=== PATIENT | male | born 1960 ===

== ENCOUNTER 2019-11-03 06:36 | Day surgery (SDC) | payer BC, OTHER ==
[~2019-11-03 06:36] MED LIST: Lactated Ringers 1,000 ML IV SCH
[2019-11-03] MEDS ORDERED: Lidocaine 2% 5 ML SDV ONE (06:59)
[2019-11-03] MEDS ORDERED: Propofol 200 MG/20 ML SDV ONE (07:00)
[2019-11-03] MEDS ORDERED: fentaNYL 100 MCG/2 ML SDV ONE (07:00)
[2019-11-03] MEDS ORDERED: Midazolam 1 MG/ML 2 ML SDV ONE (07:00)
--- NOTE | 2019-11-03 07:17 | PCM.PREANE ---
Preanesthetic Assessment - Anesthesia/Transfusion/Family Hx Anesthesia History: Prior Anesthesia Without Reaction Family History of Anesthesia Reaction: No Transfusion History: No Prior Transfusion(s) - Review of Systems General: No Symptoms Pulmonary: No Symptoms Cardiovascular: No Symptoms Gastrointestinal: No Symptoms Neurological: No Symptoms Other: Reports: None - Physical Assessment NPO Status Date: 11/02/19 NPO Status Time: 22:00 Vital Signs: Last Vital Signs Temp 96.4 F L 11/03/19 06:45 Pulse 82 11/03/19 06:45 Resp 15 11/03/19 06:45 BP 115/79 11/03/19 06:45 Pulse Ox 96 11/03/19 06:45 Height: 5 ft 10 in Weight: 90.718 kg ASA Class: 2 Mental Status: Alert & Oriented x3 Airway Class: Mallampati = 2 Dentition: Reports: Normal Dentition ROM/Head Extension: Full Lungs: Clear to Auscultation, Normal Respiratory Effort Cardiovascular: Regular Rate, Regular Rhythm - Allergies Allergies/Adverse Reactions: Allergies Allergy/AdvReac Type Severity Reaction Status Date / Time No Known Allergies Allergy Verified 10/30/19 15:38 - Acknowledgements Anesthesia Type Planned: General Anesthesia (tiva) Pt an Appropriate Candidate for the Planned Anesthesia: Yes Alternatives and Risks of Anesthesia Discussed w Pt/Guardian: Yes Pt/Guardian Understands and Agrees with Anesthesia Plan: Yes Additional Comments: PMH: smoker PreAnesthesia Questionnaire HEENT History: Reports: Cataract, Other (See Below) Other HEENT History: has upper and lower permanent partial Gastrointestinal History: Reports: Chronic Constipation, Chronic Diarrhea, Colon Polyp, PUD, Other (See Below) Other Gastrointestinal History: occasional heartburn Musculoskeletal History: Reports: Fracture Other Musculoskeletal History: hx of fx hand, toes and hip socket Neurological History: Reports: Concussion, Head Trauma Oncologic (Cancer) History: Reports: Other (See Below) Other Oncologic History: unknown type of skin cancer removed from right forehead - Past Surgical History Head Surgeries/Procedures: Reports: None HEENT Surgical History: Reports: Cataract Surgery GI Surgical History: Reports: Colonoscopy, EGD Musculoskeletal Surgical History: Reports: Knee Replacement Dermatological Surgical History: Reports: Skin Biopsy - SUBSTANCE USE Smoking Status *Q: Current Every Day Smoker Tobacco Use Within Last Twelve Months: Cigarettes Recreational Drug Use History: No - HOME MEDS Home Medications: Home Meds Aspirin [Aspirin EC] 81 mg PO DAILY 10/30/19 [History] - CURRENT (IN HOUSE) MEDS Current Meds: Current Medications Lactated Ringer's (Ringers, Lactated) 1,000 mls @ 125 mls/hr IV ASDIRECTED RUDI Discontinued Medications Fentanyl (Sublimaze) Confirm Administered Dose 100 mcg .ROUTE .STK-MED ONE Stop: 11/03/19 07:01 Lidocaine (Xylocaine-Mpf 2%) Confirm Administered Dose 5 ml .ROUTE .STK-MED ONE Stop: 11/03/19 07:00 Midazolam HCl (Versed 1 Mg/Ml) Confirm Administered Dose 2 mg .ROUTE .STK-MED ONE Stop: 11/03/19 07:01 Propofol (Diprivan 20 Ml) Confirm Administered Dose 400 mg .ROUTE .STK-MED ONE Stop: 11/03/19 07:01
[2019-11-03] MEDS ORDERED: Glycopyrrolate 0.2 MG/ML SDV ONE ×2 (08:04→08:09)
--- NOTE | 2019-11-03 08:44 | PCM.OPNOTE ---
- General Post-Op/Procedure Note Date of Surgery/Procedure: 11/03/19 Operative Procedure(s): egd w bx. colonoscopy w bx Findings: see [id number] Pre Op Diagnosis: hx duod ulcer/colon polyp Post-Op Diagnosis: Same Anesthesia Technique: Moderate Sedation Primary Surgeon: Manny Nicole Pathology: sent Complications: None Condition: Good
[2019-11-03 09:18] VITALS: BP 115/85; PULSE 80
--- NOTE | 2019-11-03 10:49 | PCM48HPAN ---
Post Anesthesia Note - EVALUATION WITHIN 48HRS OF ANESTHETIC Vital Signs in Normal Range: Yes Patient Participated in Evaluation: Yes Respiratory Function Stable: Yes Airway Patent: Yes Cardiovascular Function Stable: Yes Hydration Status Stable: Yes Pain Control Satisfactory: Yes Nausea and Vomiting Control Satisfactory: Yes Mental Status Recovered: Yes Vital Signs: Last Vital Signs Temp 96.4 F L 11/03/19 08:49 Pulse 80 11/03/19 08:49 Resp 14 11/03/19 08:49 BP 115/85 11/03/19 08:49 Pulse Ox 97 11/03/19 08:49
--- NOTE | 2019-11-03 10:49 | PCM.POSTAN ---
POST ANESTHESIA ASSESSMENT - MENTAL STATUS Mental Status: Alert, Oriented - VITAL SIGNS Vital Signs: Last Vital Signs Temp 96.4 F L 11/03/19 08:49 Pulse 80 11/03/19 08:49 Resp 14 11/03/19 08:49 BP 115/85 11/03/19 08:49 Pulse Ox 97 11/03/19 08:49 - RESPIRATORY Respiratory Status: Respiratory Rate WNL, Airway Patent, O2 Saturation Stable - CARDIOVASCULAR CV Status: Pulse Rate WNL, Blood Pressure Stable - GASTROINTESTINAL GI Status: No Symptoms - POST OP HYDRATION Hydration Status: Adequate & Stable
--- NOTE | 2019-11-03 13:55 | OR ---
SURGEON: Manny Nicole MD DATE OF PROCEDURE: 11/03/2019 PREOPERATIVE DIAGNOSIS: History of duodenal ulcer and colon polyp. PROCEDURES PERFORMED: 1. Esophagogastroduodenoscopy with biopsy. 2. Colonoscopy with biopsy. DESCRIPTION OF PROCEDURE: EGD: The patient was taken to the endoscopy room, and with the CYTOLOGY SUPERVISOR, Diprivan was administered. A well-lubricated EGD scope was gently inserted through the oropharynx, down the esophagus, passing through the gastroesophageal junction, into the stomach. The mucosa was examined upon the passage. Any etiology will be noted. Once in the stomach, we continued to advance to the distal antrum, passed through the pylorus into the second portion of the duodenum. Again, the mucosa was examined for any abnormality and etiology. The scope was then retrieved back to the stomach and then retroflexed to look at the fundus of the stomach. If a biopsy was indicated, we will biopsy the antrum, body, and gastroesophageal junction. The air will be sucked out while the scope is retrieved to reduce the patient's discomfort. The patient tolerated the procedure well. There were no intraoperative complications. Dr. Nicole was present through the whole procedure. Prior to surgery, a time-out had been called, the patient identified, procedure identified and antibiotic administered. The patient was taken to the endoscopy room. A time out was called, patient identified, and procedure identified. Diprivan was then administrated. Patient went from awake to sleep, hearing doctor talking or door closing is normal. Perineum inspection and digital examination were then performed. A well- lubricated colonoscope was gently inserted through the rectum, advanced past the rectosigmoid junction, the descending colon, splenic flexure, transverse colon, hepatic flexure, ascending colon, arrived to the cecum. Cecum was identified as dictated in the finding. Then the scope was carefully withdrawn while attention was paid to the mucosal surface for any abnormality. Air will be sucked out during the scope withdrawal. At the rectum, retroflexed to examine any rectal diseases, fistula or hemorrhoids. During mucosal examination, abnormality or polyp was noted; picture taken and biopsy performed. Patient tolerated procedure well. There were no intraoperative complications, and Dr. Nicole was present throughout the whole procedure. FINDINGS: EGD findings: 1. The patient is easily sedated with CYTOLOGY SUPERVISOR and Diprivan, the patient is soundly snoring. 2. Oropharynx and proximal esophagus are free of disease, stricture, or inflammation. Distal esophagus at GE junction at 40 shows flame-like salmon-colored change with a skip lesion, concerned about [place] esophagitis. Stomach rugae are normal in appearance. Antrum is slightly inflamed with an area, looked like a healed ulcer, right in the antrum, it was biopsied. Duodenal bulb is normal and second portion of duodenum has something like a polyp or cystic structure, about like 2 mm, it was biopsied. Scope retrieved back to look at the fundus of the stomach, and the patient has a very very tiny, small hiatal hernia. Biopsy done at the duodenum, the small cyst, and biopsy done at antral ulcer and body and GE junction at 40 and sucked out the gas while scope pulling out. During the whole study, there is no food or bile observed. Colonoscopy findings: 1. The patient is easily sedated with CYTOLOGY SUPERVISOR and Diprivan, the patient is soundly snoring. 2. Bowel prep is average to good with moderate liquid stool and no semi-formed stool. 3. Colon is rather straightforward. Cecum indicated by ileocecal fold, one-to- one indentation, appendiceal orifice. ScopeGuide is pointing south. Light emittance is not observed. With some irrigation, mucosa examined. Upon scope pulling out, the patient has some bumpy appearance in the left colon, cannot describe it, kind of like a couple of stones, but is not really a couple of stones. It was biopsied. At distance 70 when the scope pulling out, there is a hyperemic area, about 10 mm. It was biopsied too. Other than that, there is no polyp, mass, growth, inflammation, diverticulosis, stricture, ulceration, AV malformation observed. The patient has moderate internal hemorrhoids and mild external hemorrhoids. The patient would benefit from repeat colonoscopy at least 10 years from today or if clinically indicated otherwise or if the biopsy indicated otherwise. NAVDEEP / INESSA /[id number]
== END 2019-11-03 09:00 | disposition home or self-care (01) ==
LOC: MW.SDS 06:36
PROVIDERS: ATTEND Surgery
DX: K29.50 Unspecified chronic gastritis without bleeding (principal); K64.8 Other hemorrhoids; K64.4 Residual hemorrhoidal skin tags; K20.9 Esophagitis, unspecified; K63.89 Other specified diseases of intestine; K31.89 Other diseases of stomach and duodenum; F17.210 Nicotine dependence, cigarettes, uncomplicated; E78.00 Pure hypercholesterolemia, unspecified; E78.5 Hyperlipidemia, unspecified; Z86.010 Personal history of colon polyps; Z79.82 Long term (current) use of aspirin; Z87.11 Personal history of peptic ulcer disease; Z98.890 Other specified postprocedural states
CPT/HCPCS: 43239; 45380; J2001; J2250; J2704; J3010; J3490; J7120

== ENCOUNTER 2020-05-29 06:32 | Day surgery (SDC) | payer OTHER ==
[2020-05-29] MEDS ORDERED: Lidocaine 2% 5 ML SDV ONE (06:43)
[2020-05-29] MEDS ORDERED: Propofol 200 MG/20 ML SDV ONE (06:44)
[2020-05-29] MEDS ORDERED: Glycopyrrolate 0.2 MG/ML SDV ONE (06:53)
[2020-05-29] MEDS ORDERED: Midazolam 1 MG/ML 2 ML SDV ONE (06:54)
--- NOTE | 2020-05-29 07:23 | PCM.PREANE ---
Preanesthetic Assessment - Anesthesia/Transfusion/Family Hx Anesthesia History: Prior Anesthesia Without Reaction Family History of Anesthesia Reaction: No Transfusion History: No Prior Transfusion(s) - Review of Systems General: No Symptoms Pulmonary: No Symptoms Cardiovascular: No Symptoms Gastrointestinal: No Symptoms Neurological: No Symptoms Other: Reports: None - Physical Assessment NPO Status Date: 05/28/20 Vital Signs: Last Vital Signs Temp 97.3 F 05/29/20 06:40 Pulse 65 05/29/20 06:40 Resp 15 05/29/20 06:40 BP 132/86 05/29/20 06:40 Pulse Ox 97 05/29/20 06:40 Height: 5 ft 10 in Weight: 92.533 kg ASA Class: 2 Mental Status: Alert & Oriented x3 Airway Class: Mallampati = 2 Dentition: Reports: Normal Dentition ROM/Head Extension: Full Lungs: Clear to Auscultation, Normal Respiratory Effort Cardiovascular: Regular Rate, Regular Rhythm - Allergies Allergies/Adverse Reactions: Allergies Allergy/AdvReac Type Severity Reaction Status Date / Time No Known Allergies Allergy Verified 05/23/20 09:47 - Blood Blood Available: No - Anesthesia Plan Pre-Op Medication Ordered: None - Acknowledgements Anesthesia Type Planned: General Anesthesia (tiva) Pt an Appropriate Candidate for the Planned Anesthesia: Yes Alternatives and Risks of Anesthesia Discussed w Pt/Guardian: Yes Pt/Guardian Understands and Agrees with Anesthesia Plan: Yes PreAnesthesia Questionnaire HEENT History: Reports: Other (See Below) Other HEENT History: top and bottom partial Cardiovascular History: Reports: None Respiratory History: Reports: None Gastrointestinal History: Reports: Colon Polyp, Other (See Below) Other Gastrointestinal History: hx gastric ulcer Genitourinary History: Reports: None Musculoskeletal History: Reports: Fracture Other Musculoskeletal History: hx of fx hand, toes and hip socket Neurological History: Reports: None Psychiatric History: Reports: None Endocrine/Metabolic History: Reports: None Hematologic History: Reports: None Immunologic History: Reports: None Oncologic (Cancer) History: Reports: Other (See Below) Other Oncologic History: precancerous cells from right forehead Dermatologic History: Reports: None - Past Surgical History Head Surgeries/Procedures: Reports: None HEENT Surgical History: Reports: Cataract Surgery Cardiovascular Surgical History: Reports: None Respiratory Surgical History: Reports: None GI Surgical History: Reports: Colonoscopy, EGD Male Surgical History: Reports: None Endocrine Surgical History: Reports: None Neurological Surgical History: Reports: None Musculoskeletal Surgical History: Reports: Arthroscopic Knee, Knee Replacement Other Musculoskeletal Surgeries/Procedures:: right TKA Oncologic Surgical History: Reports: None Dermatological Surgical History: Reports: Skin Biopsy - SUBSTANCE USE Tobacco Use Status *Q: Current Every Day Tobacco User Tobacco Use Within Last Twelve Months: Cigarettes - HOME MEDS Home Medications: Home Meds Aspirin [Adult Aspirin Regimen] 81 mg PO DAILY 05/13/20 [History] Esomeprazole Magnesium [Nexium] 20 mg PO DAILY 05/13/20 [History] - CURRENT (IN HOUSE) MEDS Current Meds: Current Medications Lactated Ringer's (Ringers, Lactated) 1,000 mls @ 125 mls/hr IV ASDIRECTED [facility] Last Admin: 05/29/20 06:50 Dose: 125 mls/hr Documented by: Discontinued Medications Glycopyrrolate (Robinul) Confirm Administered Dose 0.2 mg .ROUTE .STK-MED ONE Stop: 05/29/20 06:54 Lidocaine (Xylocaine-Mpf 2%) Confirm Administered Dose 5 ml .ROUTE .STK-MED ONE Stop: 05/29/20 06:44 Midazolam HCl (Versed 1 Mg/Ml) Confirm Administered Dose 2 mg .ROUTE .STK-MED ONE Stop: 05/29/20 06:55 Propofol (Diprivan 20 Ml) Confirm Administered Dose 400 mg .ROUTE .STK-MED ONE Stop: 05/29/20 06:45
--- NOTE | 2020-05-29 08:25 | PCM.POSTAN ---
POST ANESTHESIA ASSESSMENT - MENTAL STATUS Mental Status: Alert, Oriented - VITAL SIGNS Vital Signs: Last Vital Signs Temp 36.3 C 05/29/20 06:40 Pulse 71 05/29/20 08:20 Resp 14 05/29/20 08:20 BP 111/72 05/29/20 08:20 Pulse Ox 93 L 05/29/20 08:20 - RESPIRATORY Respiratory Status: Respiratory Rate WNL, Airway Patent, O2 Saturation Stable - CARDIOVASCULAR CV Status: Pulse Rate WNL, Blood Pressure Stable - GASTROINTESTINAL GI Status: No Symptoms - PAIN Pain Score: 0 - POST OP HYDRATION Hydration Status: Adequate & Stable
[2020-05-29 08:30] VITALS: BP 110/70; PULSE 65
--- NOTE | 2020-05-29 08:35 | PCM.OPNOTE ---
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
--- NOTE | 2020-05-29 08:38 | PCM48HPAN ---
Post Anesthesia Note - EVALUATION WITHIN 48HRS OF ANESTHETIC Vital Signs in Normal Range: Yes Patient Participated in Evaluation: Yes Respiratory Function Stable: Yes Airway Patent: Yes Cardiovascular Function Stable: Yes Hydration Status Stable: Yes Pain Control Satisfactory: Yes Nausea and Vomiting Control Satisfactory: Yes Mental Status Recovered: Yes Vital Signs: Last Vital Signs Temp 97.3 F 05/29/20 06:40 Pulse 65 05/29/20 08:23 Resp 15 05/29/20 08:23 BP 110/70 05/29/20 08:23 Pulse Ox 94 L 05/29/20 08:23
--- NOTE | 2020-05-29 09:25 | OR ---
SURGEON: Manny Nicole MD DATE OF PROCEDURE: 05/29/2020 PREOPERATIVE DIAGNOSES: Gastric mucosa, intestinal metaplasia. POSTOPERATIVE DIAGNOSES: Gastric mucosa, intestinal metaplasia. PROCEDURE PERFORMED: Esophagogastroduodenoscopy with biopsy. DESCRIPTION OF PROCEDURE: EGD: The patient was taken to the endoscopy room, and with the SOCIAL WORK MSW, Diprivan was administered. A well-lubricated EGD scope was gently inserted through the oropharynx, down the esophagus, passing through the gastroesophageal junction, into the stomach. The mucosa was examined upon the passage. Any etiology will be noted. Once in the stomach, we continued to advance to the distal antrum, passed through the pylorus into the second portion of the duodenum. Again, the mucosa was examined for any abnormality and etiology. The scope was then retrieved back to the stomach and then retroflexed to look at the fundus of the stomach. If a biopsy was indicated, we will biopsy the antrum, body, and gastroesophageal junction. The air will be sucked out while the scope is retrieved to reduce the patient's discomfort. The patient tolerated the procedure well. There were no intraoperative complications. Dr. Nicole was present through the whole procedure. Prior to surgery, a time-out had been called, the patient identified, procedure identified and antibiotic administered. FINDINGS: 1. The patient is easily sedated with SOCIAL WORK MSW and Diprivan. The patient is soundly snoring. 2. Oropharynx and proximal esophagus are free of disease, stricture, inflammation, or varicosity, none of those. Distal esophagus at GE junction at 40 shows a flame-like salmon-colored change, suggests significant acid reflux. Stomach rugae is normal in appearance. Antrum looks fine. Duodenum looks grossly normal. On retroflexed look at the fundus of the stomach, the patient has a hiatal hernia and patient also has Schatzki ring at GE junction at 40. Gastric mapping was done because of intestinal metaplasia. Biopsy done at antrum, body, lesser curvature, and incisura angularis. GE junction done 3 times all above the Schatzki ring and sucked out the gas while scope pulling out. During the whole study, there is no food, michael ulcer or bleeding, or bile observed. NAVDEEP / INESSA /[id number]
== END 2020-05-29 08:40 | disposition home or self-care (01) ==
LOC: MW.SDS 06:32
PROVIDERS: ATTEND Surgery
DX: K29.50 Unspecified chronic gastritis without bleeding (principal); K31.89 Other diseases of stomach and duodenum; E78.5 Hyperlipidemia, unspecified; Z79.82 Long term (current) use of aspirin; Z98.890 Other specified postprocedural states
CPT/HCPCS: 43239; 88305; 88312; J2250; J2704; J3490; J7120; 00731; J2001